=== PATIENT | male | born 1945 | race Caucasian/White ===

== ENCOUNTER → 2016-07-06 | Outpatient (CLI) | payer OTHER, MEDICARE ==
[~2016-07-06] MED LIST: ARMO150T4 PO; ARTISOL8 OPB; CABERGOLINE PO; CALC-214 PO; CALC-26 PO; CHOL1TAB46 PO; CRD4 PO; CURCUMIN PO; CYAN100T6 PO; DIAZ5TAB PO; DIPH25CA65 PO; ENZA1CAP PO; ESTER C PO; ESTR0.1D TOP; FAMO20TA11 PO; FINA5TAB PO; FISHOIL PO; IBUP-1050 PO; KETO0.024 OPB; LECITHIN PO; LORA10TA5 PO; LOSA50TA6 PO; MAGN1TAB21 PO; METF1TAB85 PO; MISC1CAP69 PO; PENT400T PO; PSYLPOW38 PO; R LIPOIC ACID PO; RESVERATROL PO; SACCHAROMYCES BOULARDII PO; SIMETHICONE PO; TRN400; VITAMIN K2 PO; [UNRECOGNIZED DRUG - CODE] SC; [UNRECOGNIZED DRUG - CODE] SQ; [UNRECOGNIZED DRUG - OTHER] PO; [UNRECOGNIZED DRUG - OTHER] PO; [UNRECOGNIZED DRUG - OTHER] PO; [UNRECOGNIZED DRUG - OTHER] PO; [UNRECOGNIZED DRUG - OTHER] PO; [UNRECOGNIZED DRUG - OTHER] PO; [UNRECOGNIZED DRUG - OTHER] PO
--- NOTE | 2016-07-06 14:48 | DIAGNOSTIC IMAGING REPORT ---
WHOLE BODY SODIUM FLUORIDE PET/CT CLINICAL HISTORY: Prostate cancer. Osseous metastatic disease. COMPARISON STUDY: CT scan of the chest dated 09/30/2006. Abdominal CT dated 02/26/2009. Nuclear bone scan dated 09/17/2010. TECHNIQUE: One hour following the IV administration of 12.65 mCi of NaF-18 FDG, PET/CT examination was performed from the vertex to the feet. Noncontrast CT is performed for the purposes of anatomic correlation and attenuation correction. Note that this does not reflect a diagnostic CT examination. Images were reviewed on a separate [employer] independent workstation. Fused images were obtained. Standard uptake values reported are maximum values within the region of interest expressed in gm/mL. FINDINGS: PET FINDINGS: Skeletal structures: There is diffuse skeletal activity consistent with using a NaF-18 tracer agent. Chronic osteoblastic lesions in the sacrum, the right pubic ring, and within the left pubic ring are again seen. These have been present dating back to 2008 and do not appear to demonstrate increased/abnormal uptake as compared to the remaining bone. This likely represents treated metastatic disease. A large sclerotic lesion in the right aspect of the L1 vertebral body is new from the previous examinations. This measures up to 3.2 cm and demonstrates significant abnormal activity with a maximum SUV of 23. No additional new and tracer avid osteoblastic lesions are identified. A 10 mm sclerotic focus in the left ileum seen on image #229 does not clearly show abnormal activity and may represent a bone island or treated lesion. A sclerotic focus was also seen at this site in 2008. There is significant sclerotic change identified in L3, L4, L5, and S1. This demonstrates increased tracer activity but is typical in appearance for degenerative endplate sclerosis when correlated with the low-dose CT images. Additional foci of typically degenerative activity identified in the cervical spine, the thoracic spine, the right knee, and the right foot. There is expected excreted tracer within the renal collecting system and bladder. Unenhanced CT images: The brain parenchyma is normal as visualized. The bony orbits are intact and the orbital contents are normal as imaged. A retention cyst is present in the left maxillary antrum. The remaining paranasal sinuses and the mastoid air cells appear clear. The salivary and thyroid glands are grossly unremarkable. There is no cervical lymphadenopathy. The thoracic aorta is normal in caliber. The heart is normal in size and without pericardial effusion. Gynecomastia is noted. A small sebaceous cyst is incidentally noted anterior to the sternum. There is a small hiatal hernia. No airspace consolidation or pleural effusion is identified. No concerning pulmonary lesion is seen. A 5 mm right middle lobe pulmonary nodule and a 4 mm right basilar pleural-based nodule are unchanged dating back to 2008 and of doubtful significance. There is no mediastinal, hilar, or axillary lymphadenopathy. The unenhanced liver, gallbladder, spleen, pancreas, adrenal glands, and kidneys are grossly unremarkable. The abdominal aorta is normal in course and caliber noting moderate atherosclerotic calcification. There is no bowel obstruction. Moderate colonic fecal retention is observed. No intraperitoneal free air or abdominal ascites is seen. There is no abdominal, pelvic, or inguinal lymphadenopathy. The prostate is diminutive and heterogeneous. Brachytherapy seeds are noted. The bladder is grossly unremarkable. Lower extremity soft tissues are unremarkable. IMPRESSION: 1. There is a significantly tracer avid sclerotic lesion within the right aspect of the L1 vertebral body which is new from the available prior examinations dating back to 2010. This is consistent with active metastatic disease. 2. No additional tracer avid metastatic bone lesions are clearly identified. 3. Previously identified sclerotic bone lesions do not show abnormal tracer activity and likely represent treated metastatic disease. 4. There is no evidence of retroperitoneal lymphadenopathy. Brachytherapy seeds are noted in the prostate. 5. The lungs are clear. 6. Additional changes as discussed above. Electronically signed by: Fernando Max M.D. 07/06/2016 2:46 PM Dictated Date/Time: 07/06/2016 1:54 PM
== END ==
LOC: C.PET 10:16
PROVIDERS: ATTEND Internal Medicine
DX: C61 Malignant neoplasm of prostate (principal); C79.51 Secondary malignant neoplasm of bone; M54.9 Dorsalgia, unspecified; Z79.899 Other long term (current) drug therapy; E55.9 Vitamin D deficiency, unspecified; E78.2 Mixed hyperlipidemia; I10 Essential (primary) hypertension; N62 Hypertrophy of breast; G47.31 Primary central sleep apnea; G47.8 Other sleep disorders; T66.XXXA Radiation sickness, unspecified, initial encounter; M53.86 Other specified dorsopathies, lumbar region

== ENCOUNTER → 2016-08-13 | Outpatient (CLI) | payer OTHER, MEDICARE ==
[~2016-08-13] MED LIST changes: -CURCUMIN PO
== END | disposition home or self-care (01) ==
LOC: C.LABSPEC 12:25
PROVIDERS: ATTEND Internal Medicine
DX: Z12.11 Encounter for screening for malignant neoplasm of colon (principal)

== ENCOUNTER → 2016-09-01 | Outpatient (CLI) | payer OTHER, MEDICARE | END | disposition home or self-care (01) | LOC: C.NUCL 12:50 | PROVIDERS: ATTEND Radiology Radiation Oncology | DX: C61 Malignant neoplasm of prostate (principal); C79.51 Secondary malignant neoplasm of bone ==

== ENCOUNTER → 2016-10-06 | Outpatient (CLI) | payer OTHER, MEDICARE | END | disposition home or self-care (01) | LOC: C.NUCL 13:17 | PROVIDERS: ATTEND Radiology Radiation Oncology | DX: C61 Malignant neoplasm of prostate (principal); C79.51 Secondary malignant neoplasm of bone ==

== ENCOUNTER → 2016-11-10 | Outpatient (CLI) | payer OTHER, MEDICARE | END | disposition home or self-care (01) | LOC: C.NUCL 13:02 | PROVIDERS: ATTEND Radiology Radiation Oncology | DX: C61 Malignant neoplasm of prostate (principal); C79.51 Secondary malignant neoplasm of bone ==

== ENCOUNTER → 2016-12-08 | Outpatient (CLI) | payer OTHER, MEDICARE ==
[~2016-12-08] MED LIST changes: -CALC-214 PO
== END | disposition home or self-care (01) ==
LOC: C.NUCL 14:07
PROVIDERS: ATTEND Radiology Radiation Oncology
DX: C61 Malignant neoplasm of prostate (principal); C79.51 Secondary malignant neoplasm of bone

== ENCOUNTER → 2017-01-06 | Outpatient (CLI) | payer OTHER, MEDICARE | END | disposition home or self-care (01) | LOC: C.NUCL 13:12 | PROVIDERS: ATTEND Radiology Radiation Oncology | DX: C61 Malignant neoplasm of prostate (principal); C79.51 Secondary malignant neoplasm of bone ==

== ENCOUNTER → 2017-02-09 | Outpatient (CLI) | payer OTHER, MEDICARE | END | disposition home or self-care (01) | LOC: C.NUCL 09:34 | PROVIDERS: ATTEND Radiology Radiation Oncology | DX: C61 Malignant neoplasm of prostate (principal); C79.51 Secondary malignant neoplasm of bone ==

== ENCOUNTER → 2017-03-03 | Outpatient (CLI) | payer OTHER, MEDICARE ==
[2017-03-03 17:07] LABS: BASO % 0.2 %; BASO ABS # 0.03 K/uL (0-0.2); COMPLETE YES; EOS % 18.4 %; HEMATOCRIT 38.5 % (42-52); IG% 0.8 %; LYMPH % 6.5 %; LYMPH ABS # 0.79 K/uL (1.2-3.4); MEAN CORPUSCULAR HEMOGLOBIN 29.2 pg (25-34); MEAN CORPUSCULAR HGB CONC 32.5 g/dl (32-36); MEAN PLATELET VOLUME 9.6 fL (7.4-10.4); MONO % 5.7 %; NEUT % 68.4 %; PLATELET COUNT 194 K/uL (130-400); RED BLOOD COUNT 4.28 M/uL (4.7-6.1); WHITE BLOOD COUNT 12.15 K/uL (4.8-10.8)
[2017-03-03 17:37] LABS: ALT/SGPT 14 U/L (12-78); BLOOD UREA NITROGEN 13 mg/dl (7-18); BUN/CREATININE RATIO 22.8 (10-20); CALCIUM 9.1 mg/dl (8.5-10.1); CARBON DIOXIDE 31 mmol/L (21-32); CHLORIDE 100 mmol/L (98-107); CREATININE 0.58 mg/dl (0.60-1.40); GLUCOSE 98 mg/dl (70-99); POTASSIUM 4.2 mmol/L (3.5-5.1); SODIUM 137 mmol/L (136-145)
[2017-03-03 17:42] LABS: ALB/GLOB RATIO 0.9 (0.9-2); ALKALINE PHOSPHATASE 48 U/L (45-117); AST/SGOT 8 U/L (15-37); PROSTATE SPECIFIC ANTIGEN 0.061 ng/ml (0.000-4.000)
== END | disposition home or self-care (01) ==
LOC: C.LAB 15:22
PROVIDERS: ATTEND Specialist
DX: C61 Malignant neoplasm of prostate (principal); C79.51 Secondary malignant neoplasm of bone; Z79.899 Other long term (current) drug therapy; E55.9 Vitamin D deficiency, unspecified; E78.2 Mixed hyperlipidemia; M54.9 Dorsalgia, unspecified; I10 Essential (primary) hypertension; N62 Hypertrophy of breast; G47.31 Primary central sleep apnea; G47.8 Other sleep disorders; M06.9 Rheumatoid arthritis, unspecified; M81.0 Age-related osteoporosis without current pathological fracture; M19.90 Unspecified osteoarthritis, unspecified site; T66.XXXA Radiation sickness, unspecified, initial encounter

== ENCOUNTER → 2017-04-20 | Outpatient (CLI) | payer OTHER, MEDICARE ==
[2017-04-20 13:40] VITALS: BP 152/70; PULSE 70; TEMP 36.7; O2SAT 100
--- NOTE | 2017-04-20 16:49 | Radiation Oncology Follow-Up ---
Radiation Oncology Follow-Up Date of Visit Apr 20, 2017. Reason For Visit Six-month follow-up Radiation Completion Date Xofigo Diagnosis (1) Prostate cancer Status: Chronic Onset Date: 04/24/2009 Histology Subtype: adenocarcinoma with bone metastasis Stage: IV Permanent Comment: Rising PSA, pretreatment PSA 33.8 Status post ultrasound guided biopsies 2008 revealing Adenocarcinoma the prostate 3+4 and 4+3 Finding of bone metastasis 04/24/2009 Androgen deprivation Status post brachytherapy January 2011 followed by external beam radiation Status post completion of Xofigo treatments 02/09/2017 Last Edited By: Veronica Shay on Apr 20, 2017 16:39 History of Present Illness Mr. Peters is a 70-year-old male with a diagnosis of metastatic prostate cancer. The patient was initially diagnosed with metastatic prostate cancer in 2008 at the initial time of his diagnosis. The patient was previously treated with Lupron, Casodex, finasteride. The patient did have consolidative radiation therapy in 2010 with external beam radiation therapy and prostate seed implantation completed at the [facility] in [place]. The patient has been following with Dr. Esau Lazaro in [place] at the [facility]. More recently, the patient has been treated with Xtandi, Leukine and Metformin therapy. The patient did have a sodium fluoride PET/CT scan on 07/06/2016 which did reveal an avid sclerotic lesion within the right aspect of L1 vertebral body which is new from previous examinations as well as previously identified lesions (sacrum, right pubic ring , left pubic ring) which represent metastatic disease. The patient's most recent PSA on 08/08/2016 is 0.138. Of note, the patient did have recent testosterone levels drawn on 07/08/2016 which were all low. The patient has been recommended to be considered for Xofigo therapy. Interim History He's been doing well over the past 2 months. He did have some diarrhea associated with the treatments. He also had some edema. These side effects resolved without difficulty. He denies any increasing back pain. He has had recheck PSAs both here and [place]. PSA that was performed here on 2016 was 0.061. He stated that the value at the hospital in [place] was the same. There has been discussion of further screening follow-up. He is currently not scheduled for any follow-up imaging. He would like to review that with Dr. Khan today. Allergies Coded Allergies: No Known Allergies (Unverified , 03/02/16) Home Medications Scheduled Armodafinil (Nuvigil), 1 TAB PO QAM Artificial Tears (Artificial Tears), 1-2 DROPS OPB BID Calcium Citrate-Vitamin D (Calcium Citrate +D), 1 TAB PO TID Cholecalciferol (Vitamin D3), 2 CAP PO QPM Cyanocobalamin (Vitamin B12 100 Mcg), 50 MCG PO QAM Diphenhydramine Hcl (Benadryl Allergy), 1 CAP PO QPM Doxazosin Mesylate (Cardura *), 4 MG PO QPM Enzalutamide (Xtandi), 2 CAP PO HS Estradiol (Vivelle-Dot), 3 PATCH TOP QAM Famotidine (Pepcid), 20 MG PO BID Finasteride (Proscar), 5 MG PO QPM Fish Oil (Cohutta-3), 2,000 MG PO QPM Loratadine (Claritin), 10 MG PO QAM Losartan Potassium (Cozaar), 50 MG PO QPM Magnesium Citrate (Mg Suppleme (Magnesium Citrate), 150 MG PO TID Metformin Hcl (Metformin Hcl Er), 1 TAB PO BID Misc Natural Products (DNage), 1 CAP PO DAILY Pentoxifylline (Trental), 400 MG PO BID Pentoxifylline (Pentoxifylline ER), BID Psyllium Husk (Bulk) (Psyllium Husk), 1 TBS PO DAILY [Cabergoline], 0.5 MG PO 2XWK [Sosa C], 500 MG PO TID [Jarrodophillus], 1 TAB PO BID [Lecithin], 1 DOSE PO DAILY [Natrol Hyaluric Acid], 1 TAB PO TID [Pomegranite Extr.], 400 MG PO QPM [R Lipoic Acid], 300 MG PO BID [Resveratrol], 250 MG PO QAM [Luna], 1 TAB PO TID [Saccharoomyces Boul], 1 TAB PO BID [Simethicone], 125 MG PO PRN [Vitamin K2], 5 MG PO QPM [eye health formula], 1 TAB PO DAILY [mirtogenol], 1 TAB PO DAILY Scheduled PRN Diazepam (Valium), 0.25-0.5 TAB PO PRN PRN for Anxiety Ibuprofen (Advil), 200-400 MG PO TIDM PRN for PRN Ketotifen Fumarate (Ophth) (Alaway), 1 DROPS OPB BID PRN for ALLERGIES [Pharmanac], 900 MG PO BID PRN for PRN Review of Systems Gastrointestinal: Symptoms: WNL Oral: Symptoms: No Problems Respiratory: Symptoms: WNL Urinary: Symptoms: Nocturia Comments: Nocturia x 2, occ Urgency, see AUA & EPIC Skin: Other Skin Symptoms: N/A Physical Exam Vital Signs Date Time Temp Pulse Resp B/P (MAP) Pulse Ox O2 Delivery O2 Flow Rate FiO2 04/20/17 13:40 36.7 70 16 152/70 100 Fatigue: None General Appearance: no apparent distress Eyes: normal inspection, EOMI ENT: normal ENT inspection, hearing grossly normal Neck: no adenopathy, thyroid normal Respiratory/Chest: lungs clear, no respiratory distress, no accessory muscle use Cardiovascular: regular rate, rhythm, no gallop, no murmur Abdomen: non tender, soft, no organomegaly Extremities: no pedal edema Neurologic/Psychiatric: no motor/sensory deficits, alert, normal mood/affect Skin: warm/dry, no rash Lymphatic: no adenopathy Laboratory Studies Test 02/02/17 09:02 03/03/17 15:27 White Blood Count 15.99 K/uL (4.8-10.8) 12.15 K/uL (4.8-10.8) Red Blood Count 4.11 M/uL (4.7-6.1) 4.28 M/uL (4.7-6.1) Hemoglobin 12.4 g/dL (14.0-18.0) 12.5 g/dL (14.0-18.0) Hematocrit 36.7 % (42-52) 38.5 % (42-52) Mean Corpuscular Volume 89.3 fL (80-100) 90.0 fL (80-100) Mean Corpuscular Hemoglobin 30.2 pg (25-34) 29.2 pg (25-34) Mean Corpuscular Hemoglobin Concent 33.8 g/dl (32-36) 32.5 g/dl (32-36) Platelet Count 191 K/uL (130-400) 194 K/uL (130-400) Mean Platelet Volume 8.8 fL (7.4-10.4) 9.6 fL (7.4-10.4) Neutrophils (%) (Auto) 71.1 % 68.4 % Lymphocytes (%) (Auto) 4.9 % 6.5 % Monocytes (%) (Auto) 7.4 % 5.7 % Eosinophils (%) (Auto) 15.4 % 18.4 % Basophils (%) (Auto) 0.3 % 0.2 % Neutrophils # (Auto) 11.35 K/uL (1.4-6.5) 8.31 K/uL (1.4-6.5) Lymphocytes # (Auto) 0.79 K/uL (1.2-3.4) 0.79 K/uL (1.2-3.4) Monocytes # (Auto) 1.19 K/uL (0.11-0.59) 0.69 K/uL (0.11-0.59) Eosinophils # (Auto) 2.47 K/uL (0-0.5) 2.23 K/uL (0-0.5) Basophils # (Auto) 0.05 K/uL (0-0.2) 0.03 K/uL (0-0.2) RDW Standard Deviation 47.5 fL (36.4-46.3) 46.6 fL (36.4-46.3) RDW Coefficient of Variation 14.4 % (11.5-14.5) 14.2 % (11.5-14.5) Immature Granulocyte % (Auto) 0.9 % 0.8 % Immature Granulocyte # (Auto) 0.14 K/uL (0.00-0.02) 0.10 K/uL (0.00-0.02) Blood Urea Nitrogen 14 mg/dl (7-18) 13 mg/dl (7-18) Creatinine 0.61 mg/dl (0.60-1.40) 0.58 mg/dl (0.60-1.40) Est Creatinine Clear Calc Drug Dose 121.3 ml/min Estimated GFR () 117.3 119.7 Estimated GFR (Non- 101.2 103.3 BUN/Creatinine Ratio 22.5 (10-20) 22.8 (10-20) Alkaline Phosphatase 41 U/L (45-117) 48 U/L (45-117) Bone Specific Alkaline Phosphatase 4.6 mcg/L Sodium Level 137 mmol/L (136-145) Potassium Level 4.2 mmol/L (3.5-5.1) Chloride Level 100 mmol/L (98-107) Carbon Dioxide Level 31 mmol/L (21-32) Anion Gap 6.0 mmol/L (3-11) Random Glucose 98 mg/dl (70-99) Calcium Level 9.1 mg/dl (8.5-10.1) Total Bilirubin 0.2 mg/dl (0.2-1) Aspartate Amino Transferase (AST) 8 U/L (15-37) Alanine Aminotransferase (ALT) 14 U/L (12-78) Total Protein 6.5 gm/dl (6.4-8.2) Albumin 3.1 gm/dl (3.4-5.0) Globulin 3.4 gm/dl (2.5-4.0) Albumin/Globulin Ratio 0.9 (0.9-2) Prostate Specific Antigen 0.061 ng/ml (0.000-4.000) Total Testosterone 5 ng/dL (250-1100) Free Testosterone 0.4 pg/mL (30.0-135.0) Assessment & Plan Plan: The patient was seen today by Dr. Khan. He is going to discuss follow- up with Dr. Cary in [place]. Following her recommendations recheck scanning will be scheduled. He has orders for follow-up PSAs that are going to be drawn here. Assessment & Plan (Attending) I had long discussion with the patient today. The patient states he he would like to have a medical oncologist following him closer to his home and [place], [place]. We will help to refer him to a medical oncologist. Additionally, we will order a restaging scan to determine the status of his metastatic disease to the bone and prostate cancer in general utilizing a NaF PET/CT scan which has been previously helpful in monitoring his disease. We will exceed patient back in 6 once for follow-up evaluation. ADDENDUM: I agree with note created by Veronica Shay PA-C. I reviewed the patient's chart and information with her. I have examined and evaluated the patient. I reviewed relevant clinical information and answered the patient's and /or family's questions. BIOLOGICAL TECHNICIAN Total Time In Follow-Up I spent 15 minutes speaking to the patient performing examination. I spent 15 minutes reviewing information in completing this note. AK Total Time (Attending) In Follow-Up I spent 30 minutes examining and counseling the patient. I spent 15 minutes completing this note. BIOLOGICAL TECHNICIAN Copy To Abraham Goldstein M.D.
== END | disposition home or self-care (01) ==
LOC: C.ONC 13:36
PROVIDERS: ATTEND Physician Assistant Medical
DX: Z08 Encounter for follow-up examination after completed treatment for malignant neoplasm (principal); Z92.3 Personal history of irradiation; Z85.46 Personal history of malignant neoplasm of prostate

== ENCOUNTER → 2017-05-05 | Outpatient (CLI) | payer OTHER, MEDICARE ==
[~2017-05-05] MED LIST changes: -[UNRECOGNIZED DRUG - CODE] SC; -[UNRECOGNIZED DRUG - CODE] SQ
--- NOTE | 2017-05-05 15:19 | DIAGNOSTIC IMAGING REPORT ---
PET/CT FULL BODY CLINICAL HISTORY: 71 years-old Male presenting with C79.51 SECONDARY MALIGNANT NEOPLASM,BONE, prostate cancer metastatic to the bones diagnosed February 2009, most recent prior PET/CT with sodium fluoride average sclerotic lesion in the right aspect of the L1 vertebral body new from prior, follow-up. TECHNIQUE: PET/CT was performed from the vertex through the feet following the intravenous administration of 10.356 mCi of NaF18. The injection was performed at 12:35 PM and imaging began at 1:[address] was performed for attenuation correction purposes and anatomic localization. COMPARISON: 07/06/2016. CT DOSE (mGy.cm): The estimated cumulative dose is 2499.72. FINDINGS: Sclerotic lesion along the right inferior aspect of L1 now has a max SUV of 24.9, previously max SUV 23. The lesion is also unchanged in size measuring 3.3 cm, previously 3.2 cm in maximal axial dimension. Extensive degenerative change associated with persistent avidity in the lower cervical spine, mid thoracic spine, mid to lower lumbar spine, and bilateral knees. This is unchanged from prior. Chronic osteoblastic changes in the pelvis, most prominently in the left pubis, and posterior inferior right rib, photopenic and stable from prior. Bone island noted in the left ilium. Anatomic images demonstrate partial opacification of the maxillary sinuses. No enlarged cervical lymph nodes. Normal thyroid. Bilateral gynecomastia. Subcentimeter mediastinal lymph nodes. Mildly prominent heart size. Aortic valve and coronary artery calcification. No pericardial or pleural effusion. No focal infiltrate. Patent airways. Normal liver density. Mild bladder wall thickening likely indicating chronic outlet obstruction. Brachytherapy seeds in the small prostate. Bilateral fat-containing inguinal hernias. Mild stool burden. No bowel obstruction. No free fluid. IMPRESSION: 1. Persistent sodium fluoride avid L1 lesion consistent with active sclerotic metastatic disease. No new osseous metastatic lesion. 2. Extensive degenerative changes in the spine. 3. No lymphadenopathy. 4. Brachytherapy seeds in the prostate from prior internal radiation. Electronically signed by: Adalberto Nava M.D. 05/05/2017 3:18 PM Dictated Date/Time: 05/05/2017 3:00 PM
== END | disposition home or self-care (01) ==
LOC: C.PET 11:59
PROVIDERS: ATTEND Radiology Radiation Oncology
DX: C79.51 Secondary malignant neoplasm of bone (principal); C61 Malignant neoplasm of prostate; Z92.3 Personal history of irradiation

== ENCOUNTER → 2017-05-11 | Outpatient (CLI) | payer OTHER, MEDICARE ==
[~2017-05-11] MED LIST changes: +ARTIFICIAL TEARS OPB; +K2 PO; +LIFI5DRO OPB; -LORA10TA5 PO; +LORA10TA6 PO; +[UNRECOGNIZED DRUG - OTHER] PO; +[UNRECOGNIZED DRUG - OTHER] PO; +[UNRECOGNIZED DRUG - OTHER] PO
[2017-05-11 13:28] LABS: BASO % 0.3 %; BASO ABS # 0.02 K/uL (0-0.2); EOS % 1.2 %; EOS ABS # 0.07 K/uL (0-0.5); IG# 0.03 K/uL (0.00-0.02); LYMPH % 15.1 %; MEAN CELL VOLUME 89.8 fL (80-100); MEAN CORPUSCULAR HEMOGLOBIN 30.7 pg (25-34); MEAN CORPUSCULAR HGB CONC 34.2 g/dl (32-36); MEAN PLATELET VOLUME 9.4 fL (7.4-10.4); MONO % 7.9 %; MONO ABS # 0.47 K/uL (0.11-0.59); NEUT ABS # 4.49 K/uL (1.4-6.5); PLATELET COUNT 187 K/uL (130-400); RED CELL DISTRIBUTION WIDTH CV 13.5 % (11.5-14.5); RED CELL DISTRIBUTION WIDTH SD 44.8 fL (36.4-46.3); WHITE BLOOD COUNT 5.98 K/uL (4.8-10.8)
[2017-05-11 13:47] LABS: ALBUMIN 3.4 gm/dl (3.4-5.0); ALT/SGPT 21 U/L (12-78); BLOOD UREA NITROGEN 16 mg/dl (7-18); CALCIUM 8.9 mg/dl (8.5-10.1); CARBON DIOXIDE 31 mmol/L (21-32); GLUCOSE 94 mg/dl (70-99); POTASSIUM 4.7 mmol/L (3.5-5.1); SODIUM 136 mmol/L (136-145)
[2017-05-11 13:51] LABS: ALKALINE PHOSPHATASE 46 U/L (45-117); AST/SGOT 15 U/L (15-37); TOTAL PROTEIN 6.8 gm/dl (6.4-8.2)
== END | disposition home or self-care (01) ==
LOC: C.LAB 12:46
PROVIDERS: ATTEND Internal Medicine Hematology & Oncology
DX: C61 Malignant neoplasm of prostate (principal); C79.51 Secondary malignant neoplasm of bone; R97.20 Elevated prostate specific antigen [PSA]; Z51.81 Encounter for therapeutic drug level monitoring

== ENCOUNTER → 2017-07-06 | Outpatient (CLI) | payer OTHER, MEDICARE ==
[2017-07-06 08:17] VITALS: BP 148/75; PULSE 68; TEMP 36.6; O2SAT 99
--- NOTE | 2017-07-06 10:44 | Radiation Oncology Follow-Up ---
Radiation Oncology Follow-Up Date of Visit Jul 06, 2017. Reason For Visit To discuss radiation therapy to L1 Radiation Completion Date Xofigo on 02/09/17 Diagnosis (1) Prostate cancer Status: Chronic Onset Date: 04/24/2009 Stage: IV Permanent Comment: Rising PSA, pretreatment PSA 33.8 Status post ultrasound guided biopsies 2008 revealing Adenocarcinoma the prostate 3+4 and 4+3 Finding of bone metastasis 04/24/2009 Androgen deprivation Status post brachytherapy January 2011 followed by external beam radiation Status post completion of Xofigo treatments 02/09/2017 Last Edited By: Veronica Shay on Apr 20, 2017 16:39 History of Present Illness Mr. Peters is a 70-year-old male with a diagnosis of metastatic prostate cancer. The patient was initially diagnosed with metastatic prostate cancer in 2008 at the initial time of his diagnosis. The patient was previously treated with Lupron, Casodex, finasteride. The patient did have consolidative radiation therapy in 2010 with external beam radiation therapy and prostate seed implantation completed at the [facility] in [place]. The patient has been following with Dr. Esau Lazaro in [place] at the [facility]. More recently, the patient has been treated with Xtandi, Leukine and Metformin therapy. The patient did have a sodium fluoride PET/CT scan on 07/06/2016 which did reveal an avid sclerotic lesion within the right aspect of L1 vertebral body which is new from previous examinations as well as previously identified lesions (sacrum, right pubic ring , left pubic ring) which represent metastatic disease. The patient's most recent PSA on 08/08/2016 is 0.138. Of note, the patient did have recent testosterone levels drawn on 07/08/2016 which were all low. The patient has been recommended to be considered for Xofigo therapy. Interim History He has continued follow-up in [place] as well as our office. He had the sodium fluoride PET/CT and this revealed a new lesion at L1. He does have some back discomfort. This occurs after he has been standing for a long period of time. Sitting down relieves the pain. Also if he is standing if he leans against a counter that also relieves the pain. He gave a pain level of 3 when this occurs. He has had recheck PSAs 08/08/2016 this was 0.138. He had a PSA 2016 that was 0.061. On 05/11/2017 PSA was 0.062. And PSA 06/09/2017 was 0.057. He is seeing the physician in [place] who has made suggestion of possible treatment to L1. If this is treated the PSA may possibly be controlled and he would not need the xtandi. Allergies Coded Allergies: No Known Allergies (Unverified , 03/02/16) Home Medications Scheduled Armodafinil (Nuvigil), 1 TAB PO QAM Artificial Tears (Artificial Tears), 1-2 DROPS OPB BID Calcium Citrate-Vitamin D (Calcium Citrate +D), 1 TAB PO TID Cholecalciferol (Vitamin D3), 2 CAP PO QPM Cyanocobalamin (Vitamin B12 100 Mcg), 50 MCG PO QAM Diphenhydramine Hcl (Benadryl Allergy), 1 CAP PO QPM Doxazosin Mesylate (Cardura *), 4 MG PO QPM Enzalutamide (Xtandi), 2 CAP PO HS Estradiol (Vivelle-Dot), 3 PATCH TOP QAM Famotidine (Pepcid), 20 MG PO BID Finasteride (Proscar), 5 MG PO QPM Fish Oil (Delavan-3), 2,000 MG PO QPM Loratadine (Claritin), 10 MG PO QAM Losartan Potassium (Cozaar), 50 MG PO QPM Magnesium Citrate (Mg Suppleme (Magnesium Citrate), 150 MG PO TID Metformin Hcl (Metformin Hcl Er), 1 TAB PO BID [employer] Natural Products (compareit4me), 1 CAP PO DAILY Pentoxifylline (Trental), 400 MG PO BID Pentoxifylline (Pentoxifylline ER), BID Psyllium Husk (Bulk) (Psyllium Husk), 1 TBS PO DAILY [Cabergoline], 0.5 MG PO 2XWK [Sosa C], 500 MG PO TID [Jarrodophillus], 1 TAB PO BID [Lecithin], 1 DOSE PO DAILY [Natrol Hyaluric Acid], 1 TAB PO TID [Pomegranite Extr.], 400 MG PO QPM [R Lipoic Acid], 300 MG PO BID [Resveratrol], 250 MG PO QAM [Luna], 1 TAB PO TID [Saccharoomyces Boul], 1 TAB PO BID [Simethicone], 125 MG PO PRN [Vitamin K2], 5 MG PO QPM [eye health formula], 1 TAB PO DAILY [mirtogenol], 1 TAB PO DAILY Scheduled PRN Diazepam (Valium), 0.25-0.5 TAB PO PRN PRN for Anxiety Ibuprofen (Advil), 200-400 MG PO TIDM PRN for PRN Ketotifen Fumarate (Ophth) (Alaway), 1 DROPS OPB BID PRN for ALLERGIES [Pharmanac], 900 MG PO BID PRN for PRN Review of Systems Gastrointestinal: Symptoms: WNL GI Comments: Formed stools;takes fiber supplement;2-3 BMs/day;Can't ignore urge; Oral: Symptoms: No Problems Other Oral Symptoms: Occass gets a sensation of food getting stuck w/ swallowing; Respiratory: Symptoms: WNL Urinary: Comments: Frequency varies;2-3 voids/night to hourly voids at night; Skin: Symptoms: No Problems Additional Notes: He completed a distress management report and answered "no" to all questions other than he is concerned about pain. Physical Exam Vital Signs Date Time Temp Pulse Resp B/P (MAP) Pulse Ox O2 Delivery O2 Flow Rate FiO2 07/06/17 08:17 36.6 68 12 148/75 99 Fatigue: None General Appearance: no apparent distress Eyes: normal inspection, EOMI ENT: normal ENT inspection, hearing grossly normal Respiratory/Chest: lungs clear, no respiratory distress, no accessory muscle use Cardiovascular: regular rate, rhythm, no gallop, no murmur Abdomen: non tender, soft, no organomegaly Extremities: no pedal edema Neurologic/Psychiatric: no motor/sensory deficits, alert, normal mood/affect Skin: warm/dry Additional Exam Notes: Back is nontender in the area of the lumbar spine. Pain Management Patient Reports Pain: Yes Pain Location: Back Initial Pain Intensity: 3 Pain Management Plan He does not require any OTC or prescriptive medications. The pain is controlled with sitting down and altering postion with standing. Laboratory Laboratory Results: were reviewed Laboratory Comments: See interim history. Pathology Pathology Results: were reviewed, and pertinent findings noted in HPI Imaging Imaging Studies: were reviewed, and pertinent findings noted below Imaging Comments Patient: RADHAMES PETERS Obdulia Address1: [address] [place] [address] Rec: [id number] [facility] [id number] Zip: [place] [address] Date: 1945 Sex: M Room/Bed: Ref Phy: No Doctor, Assigned SC: C.PET Att Phy: Veeral. Khan MD Report #: [id number] Ade Phy: No Doctor, Assigned Test: PETFBD Admit Phy: Electric Organ Checker: PEPPLI Interpreting Phy: Adalberto Nava MD Diagnosis: C79.51 SECONDARY MALIGNANT NEOPLASM,BONE Ordering Phy: Murray Khan MD Service Date: 05/05/17 Admit Date: 05/05/17 MNE: [id number] CONF: DICTATED BY: Adalberto Nava MD]] CC: No Doctor, Assigned Veeral. Khan MD Endcc: [~ rep ct add3]] PET/CT FULL BODY CLINICAL HISTORY: 71 years-old Male presenting with C79.51 SECONDARY MALIGNANT NEOPLASM,BONE, prostate cancer metastatic to the bones diagnosed February 2009, most recent prior PET/CT with sodium fluoride average sclerotic lesion in the right aspect of the L1 vertebral body new from prior, follow-up. TECHNIQUE: PET/CT was performed from the vertex through the feet following the intravenous administration of 10.356 mCi of NaF18. The injection was performed at 12:35 PM and imaging began at 1:[address] was performed for attenuation correction purposes and anatomic localization. COMPARISON: 07/06/2016. CT DOSE (mGy.cm): The estimated cumulative dose is 2499.72. FINDINGS: Sclerotic lesion along the right inferior aspect of L1 now has a max SUV of 24.9, previously max SUV 23. The lesion is also unchanged in size measuring 3.3 cm, previously 3.2 cm in maximal axial dimension. Extensive degenerative change associated with persistent avidity in the lower cervical spine, mid thoracic spine, mid to lower lumbar spine, and bilateral knees. This is unchanged from prior. Chronic osteoblastic changes in the pelvis, most prominently in the left pubis, and posterior inferior right rib, photopenic and stable from prior. Bone island noted in the left ilium. Anatomic images demonstrate partial opacification of the maxillary sinuses. No enlarged cervical lymph nodes. Normal thyroid. Bilateral gynecomastia. Subcentimeter mediastinal lymph nodes. Mildly prominent heart size. Aortic valve and coronary artery calcification. No pericardial or pleural effusion. No focal infiltrate. Patent airways. Normal liver density. Mild bladder wall thickening likely indicating chronic outlet obstruction. Brachytherapy seeds in the small prostate. Bilateral fat-containing inguinal hernias. Mild stool burden. No bowel obstruction. No free fluid. IMPRESSION: 1. Persistent sodium fluoride avid L1 lesion consistent with active sclerotic metastatic disease. No new osseous metastatic lesion. 2. Extensive degenerative changes in the spine. 3. No lymphadenopathy. 4. Brachytherapy seeds in the prostate from prior internal radiation. Electronically signed by: Adalberto Nava M.D. 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 Previously treated with Xofigo which completed in January 2017. Currently on treatment with Xtandi underneath the supervision of Dr. Cary ( Med/Onc, [facility] in [place]). Most recent PSA is 0.057 on 06/09/2017. His most recent PET /CT scan does show an active vertebral metastasis at L1 and the patient is now complaining of corresponding low back pain. Dr. Cary has has asked for evaluation of radiation therapy the lumbar spine lesion so that she can potentially stop Xtandi due to the patient's low PSA and his developing neuropathy from the medication. Plan: 1. Obtain previous radiation records to determine if signficant overlap (in process). 2. If no significant overlap, proceed with radiation therapy (SBRT if no overlap ) to provide highest likelihood of tumor control so patient can safely be withheld from Xtandi due to side effects. 3. Continue on Xtandi as per Dr. Cary. 4. Continue to follow up with other providers. Pt told to call us with any further questions or concerns. Explanation to patient: We did explain the indications, alternatives, benefits, risks and side effects of external beam radiation therapy to the lumbar spine. We did explain the most common side effects including, but not limited to, skin erythema, skin breakdown, hyperpigmentation, telangiectasia, wound complications , perianal fistula development, fistula formation, vaginal dryness, vaginal stenosis, dyspareunia, dysuria, bowel obstruction, bowel perforation, increased urinary frequency, urgency, diarrhea, constipation, melena, hematochezia, hematuria, radiation cystitis, radiation proctitis, fatigue, decreased blood counts, wound complications from surgery, rectal incontinence, secondary malignancy development. The patient understands that any overlap from previous radiation therapy that overlaps with his current course of treatment could increase the risk of all side effects. We did explain the procedures and daily process of radiation therapy. The patient understands and would be willing to consent to treatment if it is recommended. The patient and family had multiple questions which were answered to their full satisfaction. Thank you for allowing us to participate in the care of this patient. This chart was completed in part utilizing [employer] Speech Voice Recognition software. Attempts were made to minimize the grammatical errors, random word insertions, pronoun errors and incomplete sentences. Any formal questions or concerns about the content, text or information contained within the body of this dictation should be directly addressed to the provider for clarification. Murray Khan MD Department of Radiation Oncology [facility] Total Time In Follow-Up I spent 15 minutes speaking to the patient and and performing examination. I spent 15 minutes reviewing information and completing this note. AK Total Time (Attending) In Follow-Up I spent 30 minutes examining and counseling the patient. I spent 15 minutes completing this note. QUALITY CONTROL OPERATOR Copy To Abraham Goldstein M.D.; Radhames Samuel M.D.; Antonette Cary M.D.
== END | disposition home or self-care (01) ==
LOC: C.ONC 08:55
PROVIDERS: ATTEND Physician Assistant Medical
DX: Z08 Encounter for follow-up examination after completed treatment for malignant neoplasm (principal); Z92.3 Personal history of irradiation; Z85.46 Personal history of malignant neoplasm of prostate

== ENCOUNTER → 2017-09-01 | Outpatient (CLI) | payer OTHER, MEDICARE ==
[~2017-09-01] MED LIST changes: -ARTISOL8 OPB; -DIAZ5TAB PO; -DIPH25CA65 PO; -ESTER C PO; -FAMO20TA11 PO; +FAMO40TA6 PO; -KETO0.024 OPB; -MISC1CAP69 PO; -R LIPOIC ACID PO; -RESVERATROL PO; -SACCHAROMYCES BOULARDII PO; -SIMETHICONE PO; -TRN400; -VITAMIN K2 PO; -[UNRECOGNIZED DRUG - OTHER] PO; -[UNRECOGNIZED DRUG - OTHER] PO; -[UNRECOGNIZED DRUG - OTHER] PO; -[UNRECOGNIZED DRUG - OTHER] PO; -[UNRECOGNIZED DRUG - OTHER] PO; -[UNRECOGNIZED DRUG - OTHER] PO; -[UNRECOGNIZED DRUG - OTHER] PO; -[UNRECOGNIZED DRUG - OTHER] PO
[2017-09-01 10:32] LABS: HEMOGLOBIN A1C 5.4 % (4.5-5.6)
[2017-09-01 10:45] LABS: CHOLESTEROL 147 mg/dl (0-200); LDL CHOLESTEROL (DIRECT) 63 mg/dl
== END | disposition home or self-care (01) ==
LOC: C.LAB 08:51
PROVIDERS: ATTEND Internal Medicine
DX: E11.9 Type 2 diabetes mellitus without complications (principal); E78.5 Hyperlipidemia, unspecified

== ENCOUNTER → 2017-09-07 | Outpatient (CLI) | payer OTHER, MEDICARE ==
[2017-09-07 14:38] VITALS: BP 156/65; PULSE 77; TEMP 36.6; O2SAT 98
--- NOTE | 2017-09-07 15:41 | Radiation Oncology Follow-Up ---
Radiation Oncology Follow-Up Date of Visit Sep 07, 2017. Reason For Visit One-month follow-up post treatment to the lumbar spine Radiation Completion Date Brachy 2010, Xofigo 02/09/17, Ext Lumbar 08/16/17 Diagnosis (1) Prostate cancer Status: Chronic Onset Date: 04/24/2009 Location: Lumbar spine Stage: IV Permanent Comment: Rising PSA, pretreatment PSA 33.8 Status post ultrasound guided biopsies 2008 revealing Adenocarcinoma the prostate 3+4 and 4+3 Finding of bone metastasis 04/24/2009 Androgen deprivation Status post brachytherapy January 2011 followed by external beam radiation Status post completion of Xofigo treatments 02/09/2017 Bone metastasis with associated pain in the lumbar spine Status post completion of radiation therapy to the lumbar spine August 16, 2017. He received 3000 cGy Last Edited By: Veronica Shay on Aug 23, 2017 14: 04 History of Present Illness Mr. Peters is a 70-year-old male with a diagnosis of metastatic prostate cancer. The patient was initially diagnosed with metastatic prostate cancer in 2008 at the initial time of his diagnosis. The patient was previously treated with Lupron, Casodex, finasteride. The patient did have consolidative radiation therapy in 2010 with external beam radiation therapy and prostate seed implantation completed at the [facility] in [place]. The patient has been following with Dr. Esau Lazaro in [place] at the [facility]. More recently, the patient has been treated with Xtandi, Leukine and Metformin therapy. The patient did have a sodium fluoride PET/CT scan on 07/06/2016 which did reveal an avid sclerotic lesion within the right aspect of L1 vertebral body which is new from previous examinations as well as previously identified lesions (sacrum, right pubic ring , left pubic ring) which represent metastatic disease. The patient's most recent PSA on 08/08/2016 is 0.138. Of note, the patient did have recent testosterone levels drawn on 07/08/2016 which were all low. The patient has been recommended to be considered for Xofigo therapy. He began Xofigo therapy in August and completed treatment on February 09, 2017. He has continued follow-up in [place] as well as our office. He had the sodium fluoride PET/CT and this revealed a new lesion at L1. He does have some back discomfort. This occurs after he has been standing for a long period of time. Sitting down relieves the pain. Also if he is standing if he leans against a counter that also relieves the pain. He gave a pain level of 3 when this occurs. He has had recheck PSAs 08/08/2016 this was 0.138. He had a PSA 03/03/2017 that was 0.061. On 05/11/2017 PSA was 0.062. And PSA 06/09/2017 was 0.057. He is seeing the physician in [place] who has made suggestion of possible treatment to L1. If this is treated the PSA may possibly be controlled and he would not need the xtandi. He underwent the treatment to the lumbar spine. This was completed on August 16, 2017. He received 3000 cGy. Interim History He has been doing well over the past month. The discomfort he was having in the lumbar spine continues but is improved. The pain can be up to level 5 if he has been standing a lot and it is towards the end of the day. Sitting down and stretching relieves the discomfort. Occasionally he will take 400 mg of ibuprofen with food. He does feel that yoga helps and will try to do this more on a regular basis. He continues follow-up with his chiropractor. He has had a recheck PSA. This was performed September 01, 2017. This was 0.045. He did complete an AUA score sheet and gave a score of 24. He completed and expanded prostate cancer index composite for clinical practice and gave a score of 2 of 12 and urinary incontinence symptoms. He gave a score of 5 of 12 and urinary irritation symptoms. He gave a score of 3 of 12 and bowel symptoms. He gave a score of 8 of 12 and sexual symptoms. He gave a score of 4 of 12 and hormonal vitality symptoms. His total was 22 of 60. He had a chronic area of itching in his lower back over many months. Since the radiation this has resolved. Allergies Coded Allergies: No Known Allergies (Unverified , 03/02/16) Home Medications Scheduled Armodafinil (Nuvigil), 75 MG PO QAM Calcium Citrate-Vitamin D (Calcium Citrate +D), 1 TAB PO TID Cholecalciferol (Vitamin D3), 2-3 CAP PO QPM Cyanocobalamin (Vitamin B12 100 Mcg), 50 MCG PO QAM Doxazosin Mesylate (Cardura *), 4 MG PO QPM Enzalutamide (Xtandi), 4 CAP PO HS Estradiol (Vivelle-Dot), 3 PATCH TOP QAM Finasteride (Proscar), 5 MG PO QPM Fish Oil (Patillas-3), 1,000 MG PO QPM Ibuprofen (Advil), 400 MG PO HS Loratadine (Claritin), 10 MG PO QAM Losartan Potassium (Cozaar), 75 MG PO DAILY Magnesium Citrate (Mg Suppleme (Magnesium Citrate), 150 MG PO TID Metformin Hcl (Metformin Hcl Er), 500 MG PO BID Pentoxifylline (Trental), 400 MG PO BID Psyllium Husk (Bulk) (Psyllium Husk), 2 TBS PO DAILY [Cabergoline], 0.5 MG PO 2XWK [Eye pressure support], 120 MG PO DAILY [Jarrodophillus], 2 TAB PO BID [K2], 45 MCG PO DAILY [artificial tears shilpa], 1 DROP OPB DIRECTED [lecithin granules], 1 TBS PO DAILY Miscellaneous Medications Famotidine (Pepcid), 40 MG PO Review of Systems Gastrointestinal: Symptoms: WNL Oral: Symptoms: No Problems Other Oral Symptoms: Slight increase in dysphagia since weaning Pepcid - Aboul Hosn Respiratory: Symptoms: WNL Urinary: Symptoms: WNL, Nocturia Comments: Nocturia x 3-5x (slightly increasing), Frequency episodic, see AUA & EPIC Skin: Symptoms: No Problems Additional Notes: He completed a distress management report and answer "no" to all questions. Physical Exam Vital Signs Date Time Temp Pulse Resp B/P (MAP) Pulse Ox O2 Delivery O2 Flow Rate FiO2 09/07/17 14:38 36.6 77 16 156/65 98 ECOG Performance Status: 0 General Appearance: no apparent distress Eyes: normal inspection, EOMI ENT: normal ENT inspection, hearing grossly normal Respiratory/Chest: lungs clear, no respiratory distress, no accessory muscle use Cardiovascular: regular rate, rhythm, no gallop, no murmur Abdomen: non tender, soft, no organomegaly Extremities: no pedal edema Neurologic/Psychiatric: no motor/sensory deficits, alert, normal mood/affect Skin: warm/dry Additional Exam Notes: Back is nontender. There are no areas of hyperpigmentation. Pain Management Patient Reports Pain: No Initial Pain Intensity: 5.0 Pain Management Plan This can occur in the lower back at the end of the day. It is relieved by sitting down and with stretching. Occasionally he will take 400 mg of ibuprofen with food. He does not require any pain management through our office. Laboratory Laboratory Results: were reviewed Laboratory Comments: Reviewed in the interim history Pathology Pathology Results: were reviewed, and pertinent findings noted in HPI Imaging Imaging Studies: were reviewed, and pertinent findings noted in HPI Assessment & Plan Plan: The patient is also seen and examined by Dr. Khan. He will continue regular follow-up with his primary care physician Dr. Mancuso. He also will continue follow-up with Dr. Antonette Cary. He plans to continue stretching exercises to help his back. A follow-up appointment with our office was not given. He may call if he has any questions or concerns we would be happy to see him if needed. Assessment & Plan (Attending) I agree with note created by Veronica Shay PA-C. I reviewed the patient's chart and information with her. I have examined and evaluated the patient. I reviewed relevant clinical information and answered the patient's and/or family' s questions. DIRECTOR NEW PRODUCT Total Time In Follow-Up I spent 15 minutes speaking to the patient and performing examination. I spent 15 minutes reviewing information and completing this note. Total Time (Attending) In Follow-Up I spent 15 minutes examining and counseling the patient. DIRECTOR NEW PRODUCT Copy To Abraham Goldstein M.D.; Antonette Cary M.D.
== END | disposition home or self-care (01) ==
LOC: C.ONC 14:29
PROVIDERS: ATTEND Physician Assistant Medical
DX: Z08 Encounter for follow-up examination after completed treatment for malignant neoplasm (principal); Z92.3 Personal history of irradiation; Z85.46 Personal history of malignant neoplasm of prostate